=== PATIENT | male | born 1985 | race African-American/Black ===

== ENCOUNTER → 2019-05-28 | Outpatient (CLI) | payer OTHER ==
--- NOTE | 2019-05-28 16:20 | RAD ---
Chest radiograph 05/28/2019 12:00 AM INDICATION: Shortness of breath COMPARISON: None available TECHNIQUE: Frontal and lateral views of the chest are provided. FINDINGS: The cardiomediastinal silhouette is within normal limits. There are no pleural effusions. There is no pulmonary vascular congestion. There is no pneumothorax. The lungs are clear. No significant osseous abnormality is identified. IMPRESSION: No acute cardiopulmonary process. Electronically signed by: Dalila Disla MD (05/28/2019 4:17 PM) [id number]
== END | disposition home or self-care (01) ==
LOC: RAD 11:23
PROVIDERS: ATTEND Family Medicine
DX: R06.02 Shortness of breath (principal); F17.200 Nicotine dependence, unspecified, uncomplicated
CPT/HCPCS: 71046

== ENCOUNTER → 2019-05-28 | Outpatient (CLI) | payer OTHER ==
--- NOTE | 2019-05-28 15:08 | KCIC ---
MRI Lumbar Spine without contrast History: Herniated lumbar disc, low back pain Technique: Multiplanar, multi sequential noncontrast MR imaging was performed of the lumbar spine. Comparison: None Findings: Lumbar vertebral body stature and AP alignment are maintained. There is mild disc desiccation L5-S1. There is posterior annular tear L5-S1. Conus terminates near T12. There is minimal edema of the anterior superior corners of L4 and L3. L1-2, L2-3: Spinal canal and neural foramina are adequate. These levels were not included on the axial images. L3-L4: There is mild prominence of posterior epidural fat centrally. There is mild buckling of the ligamentum flavum and facet degenerative change. Spinal canal and neural foramina are adequate. L4-L5: There is mild prominence of posterior epidural fat centrally. There is minimal buckling of the ligamentum flavum and facet degenerative change. Spinal canal and neural foramina are adequate. L5-S1: There is minimal disc osteophyte complex, superimposed very shallow protrusion 1 to 2 mm AP, near ventral surfaces of the descending S1 nerve roots bilaterally without significant posterior displacement. There is prominence of epidural fat in the lateral recesses and posteriorly contributing to moderate to severe attenuation of the thecal sac extending into the sacrum with limited preserved central subarachnoid space. Neural foramina are adequate. Impression: 1. There is minimal spondylosis L5-S1, minimal disc osteophyte complex and shallow superimposed protrusion at this level near the descending S1 nerve roots without significant posterior displacement. There is moderate to severe attenuation of the thecal sac at L5-S1 due to epidural lipomatosis extending into the sacrum. There is no significant lumbar neural foramina compromise. Electronically signed by: Quincy Ayala MD (05/28/2019 3:06 PM) [facility]
== END | disposition home or self-care (01) ==
LOC: KCIC MRI 13:22
PROVIDERS: ATTEND Family Medicine
DX: M51.37 Other intervertebral disc degeneration, lumbosacral region (principal); M43.06 Spondylolysis, lumbar region; M51.27 Other intervertebral disc displacement, lumbosacral region; M25.78 Osteophyte, vertebrae
CPT/HCPCS: 72148

== ENCOUNTER → 2019-06-03 | Outpatient (CLI) | payer OTHER ==
[~2019-06-03] MED LIST: ZOLPIDEM 5 MG TABLET. PO ONE
--- NOTE | 2019-06-05 13:21 | SLEEP ---
DATE OF STUDY: 06/03/2019 ATTENDING PHYSICIAN: Dr Min Castillo. The patient is 34 years old who weighs 230 pounds with a BMI of 32. The patient's [place] score was 8. The patient underwent a split night study performed at [facility]. During the night study, the patient spent 410 minutes in bed and slept for 358 minutes with a sleep efficiency of 87%. Sleep latency was 54 minutes with a REM latency of 146 minutes. Overall, sleep architecture showed normal stage 1 sleep, increased stage 2 sleep, increased sow wave and reduced REM sleep. During the initial diagnostic portion of the study, the patient slept for 124 minutes. During that time, the patient had 92 obstructive apneas, 58 mixed apneas, no central apnea and 15 hypopneas. The patient's apnea-hypopnea index was 80 per hour. Supine index 76 per hour and a REM index of 93 per hour. No PLMs observed. EKG monitoring revealed normal sinus rhythm, average heart rate 74 beats per minute, no sustained arrhythmias observed. Nocturnal oximetry study revealed a mean oxygen saturation of 95% with the lowest of 73%. A 30% of time oxygen saturation remained between 80% and 89% and 6.7% of time between 70% and 79%. The patient met the criteria for CPAP initiation. It was started at 5 cm water and titrated up to 15 cm water. At the final pressure, the patient slept for 97 minutes. The patient had supine sleep as well as REM sleep. The patient's AHI was reduced to 3 per hour and oxygen saturation remained above 88%. The patient used a medium size full face mask. IMPRESSION: 1. Severe sleep apnea-hypopnea syndrome at an AHI of 80 per hour. 2. Nocturnal hypoxia secondary to obstructive sleep apnea, but resolved with CPAP. 3. No periodic limb movements. RECOMMENDATIONS: 1. CPAP at 15 cm water completely eliminated the patient's sleep apnea and should be used on a nightly basis. 2. Follow up in 4-6 weeks to assess compliance with CPAP and to document clinical improvement. 3. Weight loss is strongly advised. 4. Avoid [employer] depressants. 5. Caution regarding driving until symptoms of sleep apnea resolve with the use of CPAP. BIANKA YODER MD DR: ERICKA/marcia JOB#: [id number] / [id number] MIN Zhu MD
== END | disposition home or self-care (01) ==
LOC: RT 19:04
PROVIDERS: ATTEND Family Medicine
DX: G47.33 Obstructive sleep apnea (adult) (pediatric) (principal); G47.34 Idiopathic sleep related nonobstructive alveolar hypoventilation
CPT/HCPCS: 95810